=== PATIENT | female | born 1990 | race Caucasian/White ===

== ENCOUNTER 2022-09-07 11:38 | Emergency (ER) | payer OTHER, SELFPAY ==
[2022-09-07 12:07] VITALS: BP 125/68; PULSE 80; RESP 18; TEMP 36.6; O2SAT 100; BMI 29.2
--- NOTE | 2022-09-07 13:42 | ED.WOUNDLAC ---
HPI - Wound/Laceration <Torsten Rodriguez PA-C - Last Filed: 09/07/22 14:49> General Chief Complaint: Wound/Laceration Stated Complaint: abcess from underarm Time Seen by Provider: 09/07/22 12:50 History of Present Illness HPI narrative: This is a 32-year-old female presents emergency department due to an abscess under the left arm which has been draining since yesterday. Abscess began developing couple of days ago. She states she is had a history of mastitis as well. No antibiotic allergies. Related Data Previous Rx's Medication Instructions Recorded sulfamethoxazole 800 1 tab PO BID 7 days #14 tabs 09/07/22 mg-trimethoprim 160 mg tablet (Bactrim DS) sulfamethoxazole 800 1 tab PO Q12H #14 tabs 09/07/22 mg-trimethoprim 160 mg tablet (Bactrim DS) Allergies Allergy/AdvReac Type Severity Reaction Status Date / Time No Known Drug Allergies Allergy Verified 09/07/22 12:12 Review of Systems <Torsten Rodriguez PA-C - Last Filed: 09/07/22 14:49> Review of Systems Narrative: GENERAL: Denies chills, fatigue, malaise, fever, sweats. HEENT: Denies sinus pain, ear pain, sore throat, difficulty swallowing, dizziness. RESPIRATORY: Denies dyspnea, cough, wheezing, hemoptysis, sputum. CARDIOVASCULAR: Denies chest pain, palpitations, orthopnea, edema, GASTROINTESTINAL: Denies nausea, vomiting, abdominal pain, diarrhea, constipation, melena. : Denies dysuria, frequency, incontinence, hematuria, urinary retention. MUSCULOSKELETAL: denies weakness, joint pain, or bony pain SKIN: Left armpit abscess NEUROLOGIC: Denies weakness, headache, numbness, change in speech, confusion, seizures, incoordination. PSYCHIATRIC: No concerning psychosocial issues. 12 point review of systems is negative except for those stated above Patient History <ERIC Goldman Last Filed: 09/07/22 14:49> Social History Smoking Status: Never smoker Smoking Status: Never smoker alcohol intake frequency: 0-2 drinks per day Substance Use Type: does not use Exam <ERIC Goldman Last Filed: 09/07/22 14:49> Narrative Exam Narrative: GENERAL: Well-developed patient, in mild distress. HEAD: Atraumatic. Normocephalic. EYES: Pupils equal round and reactive. Extraocular motions intact. No scleral icterus. No injection or drainage. ENT: Nose without bleeding, purulent drainage. Throat without erythema, tonsillar hypertrophy or exudate. Airway patent. NECK: Trachea midline. Non tender CARDIOVASCULAR: Regular rate and rhythm without murmurs, gallops, or rubs. RESPIRATORY: Clear to auscultation. Breath sounds equal bilaterally. No wheezes, rales, or rhonchi. GASTROINTESTINAL: Abdomen soft, non-tender, nondistended. EXTREMITIES: No edema or joint tenderness. BACK: Nontender without deformity or crepitance. No flank tenderness. NEURO: AOx3. SKIN: abscess affecting the left axillary region, very small amount of purulent drainage, surrounding erythema. Proximally 5 cm of fluctuance with a 0.5 cm open wound Initial Vital Signs Initial Vital Signs: Vital Signs Temperature 98 F 09/07/22 12:07 Pulse Rate 80 09/07/22 12:07 Respiratory Rate 18 09/07/22 12:07 Blood Pressure 125/68 09/07/22 12:07 Pulse Oximetry 100 09/07/22 12:07 Oxygen Delivery Method Room Air 09/07/22 12:07 <Clau Lilly DO - Last Filed: 09/08/22 07:22> Initial Vital Signs Initial Vital Signs: Vital Signs Temperature 98 F 09/07/22 12:07 Pulse Rate 80 09/07/22 12:07 Respiratory Rate 18 09/07/22 12:07 Blood Pressure 125/68 09/07/22 12:07 Pulse Oximetry 100 09/07/22 12:07 Oxygen Delivery Method Room Air 09/07/22 12:07 Procedures <Torsten Rodriguez PA-C - Last Filed: 09/07/22 14:49> Abscess I/D I&D #1: Time of procedure: 14:25 Site: other (L axilla ) Side (if applicable): left Sedation/analgesia: none Local Anesthetic: lidocaine 2% and with epi Amount of anesthesia used (mL): 5 Technique: incised with #11 blade Amount of fluid expressed (mL): 5 Packing used?: none Course <ERIC Goldman Last Filed: 09/07/22 14:49> Orders Ordered: Discontinued Medications Lidocaine/Epinephrine (Lidocaine 2% W/Epi Inj) 20 ml INJ INTRA-OP ONE Stop: 09/07/22 13:49 Last Admin: 09/07/22 14:02 Dose: 20 ml Documented By: LIANNA Vital Signs Vital signs: Vital Signs - 8 hr 09/07/22 12:07 Temperature 98 F Pulse Rate 80 Respiratory Rate 18 Blood Pressure 125/68 Pulse Oximetry 100 Oxygen Delivery Method Room Air <Clau Lilly DO - Last Filed: 09/08/22 07:22> Orders Ordered: Discontinued Medications Lidocaine/Epinephrine (Lidocaine 2% W/Epi Inj) 20 ml INJ INTRA-OP ONE Stop: 09/07/22 13:49 Last Admin: 09/07/22 14:02 Dose: 20 ml Documented By: LIANNA Vital Signs Vital signs: Vital Signs - 8 hr 09/07/22 12:07 Temperature 98 F Pulse Rate 80 Respiratory Rate 18 Blood Pressure 125/68 Pulse Oximetry 100 Oxygen Delivery Method Room Air MDM - Wound/Laceration <Torsten Rodriguez PA-C - Last Filed: 09/07/22 14:49> MDM Narrative Medical decision making narrative: MDM * differential diagnosis includes but not limited to abscess, cellulitis * Prior records reviewed: Patient has not been here for similar complaints in the past * My lab interpretation: None obtained * My imgaing interpretation: None obtained * Clinical Decision Rules/Scores evaluated: None * Independent discussions with: None ED Course: This is a 32-year-old female presents to the emergency department due to a left axillary abscess. This was incised and drained without complications. Patient's will be discharged with oral antibiotics as well. No systemic symptoms reported and vital signs within normal limits. Shared Decision Making: Discussed plan with patient who is comfortable with the plan Social Considerations: None Disposition: Discharged to home Discharge Plan Departure Patient Disposition: Home Clinical Impression: Abscess Instructions: DI for Skin Abscess Activity Restrictions/Additional Instructions: Thank you for coming to the [facility] Emergency Department today. I am glad that we are able to drain the abscess. Please take oral antibiotics as prescribed. I sent your medications to [facility] in [place]. I hope you feel better soon. Prescriptions: New sulfamethoxazole-trimethoprim [Bactrim DS] 800-160 mg tablet 1 tab PO BID 7 Days Qty: 14 0RF sulfamethoxazole-trimethoprim [Bactrim DS] 800-160 mg tablet 1 tab PO Q12H Qty: 14 0RF Referrals: Provider,Grace BULLARD [Primary Care Provider] - Stand Alone Forms: Patient Portal/API <Clau Lilly DO - Last Filed: 09/08/22 07:22> Cosign ED Attending Lachelle Attestation: I was immediately available in the department for consultation. Documentation has been reviewed.
[2022-09-07] MEDS: LIDOCAINE 2% W/EPI INJ 20 ML INJ (14:02)
[2022-09-07 14:48] VITALS: BP 122/72; PULSE 82; RESP 20; O2SAT 97
== END 2022-09-07 14:48 | disposition home or self-care (01) ==
PROVIDERS: Emergency Provider Physician Assistant Medical
DX: L02.414 Cutaneous abscess of left upper limb (principal)
CPT/HCPCS: 10060; 99282; 99283